=== PATIENT | male | born 1950 | race Caucasian/White ===

== ENCOUNTER → 2018-02-24 | Outpatient (CLI) | payer OTHER ==
[~2018-02-24] MED LIST: ASPI-496 PO; BIOT1TAB2 PO; CARV6.252 PO; GLUC1CAP40 PO; HYDROCHLOROTH12.5 MG PO; LISI-167 PO; ROSU20TA PO; TAMS-11 PO
== END | disposition home or self-care (01) ==
LOC: CFH 07:30
PROVIDERS: ATTEND Internal Medicine Cardiovascular Disease
DX: I44.7 Left bundle-branch block, unspecified (principal); I10 Essential (primary) hypertension; E78.5 Hyperlipidemia, unspecified
CPT/HCPCS: 93306